=== PATIENT | female | born 1980 | race African-American/Black ===

== ENCOUNTER 2018-04-12 01:36 | Emergency (ER) | payer MEDICARE, MEDICAID ==
[~2018-04-12] VITALS: Ht 165.1 cm; Wt 86.0 kg
[2018-04-12 06:36] LABS: BASOPHILS % 1.5 % (0.0-2.0); EOSINOPHILS % 2.6 % (0.0-5.0); HEMATOCRIT. 36.8 % (36.0-48.0); HEMOGLOBIN. 11.8 g/dL (12.0-16.0); MEAN CORPUSCULAR HEMOGLOBIN 25.9 pg (28.0-32.0); MEAN CORPUSCULAR VOLUME 80.6 fL (81.0-99.0); MEAN PLATELET VOLUME 9.2 fl (7.4-10.4); MONOCYTES % 7.7 % (2.0-8.0); NEUTROPHILS % 37.2 % (40.0-76.0); PLATELET 290 x1000/uL (130-400); RED BLOOD CELL COUNT 4.56 mill/uL (4.2-5.4); RED CELL DISTRIBUTION WIDTH 18.2 % (11.6-14.6)
[2018-04-12 06:45] LABS: CHLORIDE 110 mEq/L (98-107); PROTHROMBIN TIME 10.4 sec (9.4-11.6)
[2018-04-12 06:55] LABS: B-HCG QUANTITATIVE < 1 mIU/mL (<3)
[2018-04-12 07:48] LABS: CLARITY URINE CLEAR (CLEAR); COLOR URINE YELLOW (YELLOW); KETONES URINE NEGATIVE (NEGATIVE); LEUKOCYTE ESTERASE URINE NEGATIVE (NEGATIVE); NITRITE URINE NEGATIVE (NEGATIVE); OCCULT BLOOD URINE NEGATIVE (NEGATIVE); PH URINE 6.5 (4.5-8.0); PROTEIN URINE NEGATIVE (NEGATIVE)
[2018-04-12 08:12] LABS: *AMPHETAMINES SCREEN URINE NEGATIVE (NEGATIVE); *BARBITURATES SCREEN URINE NEGATIVE (NEGATIVE)
[2018-04-12 08:13] LABS: *BENZODIAZEPINES SCREEN URINE NEGATIVE (NEGATIVE); *COCAINE SCREEN URINE NEGATIVE (NEGATIVE); METHADONE URINE SCREEN NEGATIVE (NEGATIVE)
[2018-04-12 08:14] LABS: CANNABINOID URINE SCREEN NEGATIVE (NEGATIVE); OPIATES URINE SCREEN NEGATIVE (NEGATIVE); PHENCYCLIDINE URINE SCREEN NEGATIVE (NEGATIVE)
[2018-04-12 08:24] VITALS: BP 142/87
[2018-04-12] MEDS ORDERED: IBUPROFEN 600MG TABLET PO ONE (09:15)
[2018-04-14 14:17] LABS: CHLAMYDIA TRACHOMATIS NAA Negative (Negative); NEISSERIA GONORRHOEAE NAA Negative (Negative)
== END 2018-04-12 08:37 | disposition home or self-care (01) ==
LOC: ER 01:36
DX: N89.8 Other specified noninflammatory disorders of vagina (principal); F17.200 Nicotine dependence, unspecified, uncomplicated; F12.10 Cannabis abuse, uncomplicated; Z98.890 Other specified postprocedural states
CPT/HCPCS: 36415; 80053; 80305; 81003; 81025; 83690; 84702; 85025; 85610; 87210; 87491; 87591; 99284

== ENCOUNTER 2021-04-05 14:01 | Emergency (ER) | payer MEDICAID, OTHER ==
[~2021-04-05] VITALS: Ht 160 cm; Wt 55.0 kg
[2021-04-05 16:23] LABS: BASOPHILS % 0.6 % (0.0-2.0); EOSINOPHILS % 1.4 % (0.0-5.0); HEMATOCRIT. 24.6 % (36.0-48.0); HEMOGLOBIN. 7.6 g/dL (12.0-16.0); LYMPHOCYTES % 46.9 % (20.0-50.0); MEAN CORPUSCULAR HEMOGLOBIN 20.6 pg (28.0-32.0); MEAN CORPUSCULAR VOLUME 66.4 fL (81.0-99.0); NEUTROPHILS % 46.1 % (40.0-76.0); PLATELET 297 x1000/uL (130-400); RED CELL DISTRIBUTION WIDTH 18.9 % (11.6-14.6)
[2021-04-05 16:31] LABS: CHLORIDE 114 mEq/L (98-107)
[2021-04-05 16:35] LABS: ETHANOL BLOOD < 10 mg/dL
[2021-04-05 16:38] LABS: HCG SCREEN NEGATIVE
[2021-04-05 17:52] LABS: PLATELET ESTIMATE NORMAL
[2021-04-05 19:22] LABS: *BARBITURATES SCREEN URINE NEGATIVE (NEGATIVE)
[2021-04-05 19:23] LABS: *BENZODIAZEPINES SCREEN URINE NEGATIVE (NEGATIVE); CANNABINOID URINE SCREEN NEGATIVE (NEGATIVE); METHADONE URINE SCREEN NEGATIVE (NEGATIVE); OPIATES URINE SCREEN NEGATIVE (NEGATIVE); PHENCYCLIDINE URINE SCREEN NEGATIVE (NEGATIVE)
[2021-04-05 20:00] LABS: CLARITY URINE CLEAR (CLEAR); COLOR URINE YELLOW (YELLOW); PROTEIN URINE NEGATIVE (NEGATIVE); SPECIFIC GRAVITY URINE 1.028 (1.005-1.030)
[2021-04-05 20:01] LABS: KETONES URINE NEGATIVE (NEGATIVE); LEUKOCYTE ESTERASE URINE NEGATIVE (NEGATIVE); NITRITE URINE NEGATIVE (NEGATIVE); OCCULT BLOOD URINE 1+ (NEGATIVE)
[2021-04-05 20:07] LABS: *AMPHETAMINES SCREEN URINE PRESUMTIVE POSITIVE (NEGATIVE); *COCAINE SCREEN URINE PRESUMTIVE POSITIVE (NEGATIVE)
[2021-04-06] MEDS ORDERED: DIPHENHYDRAMINE 50MG/ML VIAL IM PRN (13:15)
[2021-04-06] MEDS ORDERED: OLANZAPINE 10 MG/VIAL IM ONE (13:15)
[2021-04-06] MEDS ORDERED: LORAZEPAM 2MG/ML CPJ IM ONE (14:00)
[2021-04-06] MEDS: LORAZEPAM 2MG/ML CPJ IM PRN (15:35)
[2021-04-06] MEDS ORDERED: HALOPERIDOL LACTATE 5MG/ML VIAL IM ONE ×2 (17:00→23:30)
[2021-04-06] MEDS ORDERED: LORAZEPAM 1MG TABLET PO ONE (23:30)
[2021-04-07] MEDS ORDERED: LORAZEPAM 2MG/ML CPJ IM STA (12:52)
[2021-04-07] MEDS: LORAZEPAM 2MG/ML CPJ IM PRN (12:58)
[2021-04-07] MEDS ORDERED: OLANZAPINE 10 MG/VIAL IM ONE (13:00)
[2021-04-07] MEDS ORDERED: LORAZEPAM 2MG/ML CPJ IM ONE (18:00)
[2021-04-07 20:37] VITALS: BP 126/63
== END 2021-04-07 21:16 ==
LOC: ER 14:01
DX: O26.891 Other specified pregnancy related conditions, first trimester (principal); Z3A.08 8 weeks gestation of pregnancy
CPT/HCPCS: 36415; 71045; 76856; 80053; 80305; 80307; 80320; 80329; 81003; 84703; 85025; 96372; 99285; J1200; J1630; J2060; J3490; Z7610; G0480